=== PATIENT | female | born 1995 | race Caucasian/White ===

== ENCOUNTER → 2018-08-22 | Outpatient (CLI) | payer BC ==
--- NOTE | 2018-08-22 13:11 | RADIOLOGY IMAGING REPORT ---
FACILITY: [facility] PATIENT NAME: Carmel Walker : 1995 MR: [id number] V: [id number] EXAM DATE: ORDERING PHYSICIAN: SHEA CALDWELL TECHNOLOGIST: Location: [facility] Patient: Carmel Walker : 1995 Visit/Account:[id number] Date of Sevice: 08/22/[address] scan without contrast HISTORY: Migraine, vomiting COMPARISONS: None TECHNIQUE: Non-contrast head CT was performed with sagittal and coronal reformations. One of the following dose optimization techniques was utilized in the performance of this exam: autom ated exposure control; adjustment of the mA and/or kV according to patient size; or use of iterative reconstruction technique. Specific details can be referenced in the facility's radiology CT exam ope rational policy. FINDINGS: There is no intracranial hemorrhage, hydrocephalus or midline shift. The basal cisterns, babocck-white differentiation, and convexity sulci are maintained. Normal orbital soft tissues. The mastoid air cells are clear. The paranasal sinuses are clear. The osseous structures are normal . IMPRESSION: No acute intracranial abnormality. Normal head CT. Report Dictated By: Franklin Belle MD at 08/22/2018 1:03 PM Report E-Signed By: Franklin Belle MD at 08/22/2018 1:06 PM WSN:[id number]
== END ==
LOC: CT 12:33
PROVIDERS: ATTEND Nurse Practitioner Family
DX: R51 Headache (principal)
CPT/HCPCS: 70450